=== PATIENT | male | born 1950 | race Caucasian/White ===

== ENCOUNTER 2018-05-11 08:39 | Emergency (ER) | payer MEDICARE ==
[~2018-05-11] VITALS: Ht 172.7 cm; Wt 76.4 kg
[~2018-05-11 08:39] MED LIST: LEVAQUIN 750MG750 M1 PO
[2018-05-11 08:48] VITALS: TEMP 97.6
[2018-05-11 09:09] LABS: BASO % 0.3 % (0.0-2.0); EOS # 0.1 (0.0-0.7); EOS % 0.6 % (0-4.0); GRAN # 8.9 (1.4-6.5); GRAN % 77.4 % (42.2-75.2); HEMATOCRIT 44.4 % (42.0-52.0); HEMOGLOBIN 14.8 g/dl (13.5-18.0); LYMPH # 1.7 (1.2-3.4); LYMPH % 15.2 % (20.0-51.0); MEAN CELL VOLUME 94 fl (80.0-100.0); MEAN CORPUSCULAR HEMOGLOBIN 31 pg (27.0-31.0); MEAN CORPUSCULAR HGB CONC 33 g/dl (33.0-37.0); MEAN PLATELET VOLUME 8.9 fl (7.4-10.4); MONO # 0.7 (0.1-0.6); MONO % 6.2 % (1.7-9.3); PLATELET COUNT 240 K/mm3 (130-400); RED BLOOD COUNT 4.72 M/mm3 (4.20-5.60); REDCELL DISTRIBUTION WIDTH-CV 12.6 % (11.5-14.5)
[2018-05-11 09:22] LABS: ALBUMIN 4.2 gm/dL (3.5-5.0); BILIRUBIN,TOTAL 1.3 mg/dL (0.0-1.0); CALCIUM 9.2 mg/dL (8.4-10.2); CREATININE, serum 0.98 mg/dL (0.66-1.25); POTASSIUM 4.4 mmol/L (3.4-5.0); TOTAL PROTEIN 7.6 gm/dL (6.4-8.2)
[2018-05-11] MEDS ORDERED: PRILOSEC 20MG20 MG PO (09:47)
[2018-05-11] MEDS ORDERED: ZOFRAN ODT8 MG PO (09:47)
[2018-05-11 10:44] LABS: COLLECTION METHOD CLEAN CATCH
[2018-05-11 10:50] LABS: MUCOUS Present /lpf; PH 5 (5-8); SQUAMOUS EPITHELIAL 0-2 /hpf; URINE APPEARANCE Clear; URINE BACTERIA None Seen /hpf; URINE BILIRUBIN Negative (NEGATIVE); URINE BLOOD 1+ (NEGATIVE); URINE COLOR Yellow; URINE GLUCOSE Negative (NEGATIVE); URINE KETONE Negative (NEGATIVE); URINE LEUKOCYTE ESTERASE Negative (NEGATIVE); URINE NITRATE Negative (NEGATIVE); URINE PROTEIN(semi-quant) Negative (NEGATIVE); URINE RBC 0-2 /hpf; URINE UROBILINOGEN Negative (NEGATIVE)
[2018-05-11 12:00] VITALS: BP 130/66; PULSE 72
== END 2018-05-11 12:02 | disposition home or self-care (01) ==
LOC: COL.ER 08:39
PROVIDERS: Emergency Medicine
DX: K92.0 Hematemesis (principal); F17.210 Nicotine dependence, cigarettes, uncomplicated; F12.90 Cannabis use, unspecified, uncomplicated
CPT/HCPCS: C9113; J2270; J2405; J2765; J7030; Q9967

== ENCOUNTER 2018-06-01 13:02 | Day surgery (SDC) | payer MEDICARE, OTHER ==
[~2018-06-01] VITALS: Ht 172.7 cm; Wt 78.4 kg
[2018-06-01] VITALS (9 sets, daily range): BP systolic 99–140; BP diastolic 36–85; PULSE 60–86; TEMP 97.9
[~2018-06-01 13:02] MED LIST changes: +PRILOSEC 20MG20 MG PO; +ZOFRAN ODT8 MG PO
--- NOTE | 2018-06-01 15:10 | NUR ---
Pt returns from endo procedure. Pt ambulates from cart to recliner with RN assist. Monitors on and alarms set. Call light within reach. Pt complains of abdominal pain. Abdomen feels firm--anticipate air in colon from procedure. Report received from PREET [facility]. Pt has no complaints of nausea. present in room.
--- NOTE | 2018-06-01 15:25 | NUR ---
Pt ambulates to bathroom with this RN assist.
--- NOTE | 2018-06-01 15:30 | NUR ---
Pt ambulates back from bathroom having passed some gas. Pt remains feeling pain in abdomen. Dr. Wen in to visit with patient. The doctor feels the abdomen and states it feels like air in the colon from the procedure.
--- NOTE | 2018-06-01 15:45 | NUR ---
Pt taking water and crackers well. Pain in abdomen remains.
--- NOTE | 2018-06-01 15:55 | NUR ---
Pt given warm blanket to place on abdomen as well as another blanket over his body. Pt expresses comfort over these and appears to relax with eyes closed.
--- NOTE | 2018-06-01 16:00 | NUR ---
Pt continues to pass gas, but still has abdominal pain.
--- NOTE | 2018-06-01 16:10 | NUR ---
Communicate with Dr. Wen regarding abdominal pain. He recommends an x-ray to check for free air.
--- NOTE | 2018-06-01 16:30 | NUR ---
Patient continues to pass gas and states continued abdominal pain, but has much relief from previous state.
--- NOTE | 2018-06-01 16:35 | NUR ---
Pt continues to have much relief with much less abdominal pain. Patient desires to be discharged.
--- NOTE | 2018-06-01 16:45 | NUR ---
Radiologist states there is no free air in patient. Dr. Behzad ramirezs discharge of patient.
--- NOTE | 2018-06-01 16:50 | NUR ---
Discharge instructions given to patient and . All questions answered to their satisfaction. Handed to them are a thank you card, discharge instructions, and diagnosis information. Pt ambulates to bathroom with RN assist.
--- NOTE | 2018-06-01 17:00 | NUR ---
Pt transferred out of hospital via wheelchair and Marsha assist to private vehicle driven by .
== END 2018-06-01 17:00 | disposition home or self-care (01) ==
LOC: SDCO 13:02
DX: Z12.11 Encounter for screening for malignant neoplasm of colon (principal); Z80.0 Family history of malignant neoplasm of digestive organs; D12.5 Benign neoplasm of sigmoid colon; K21.0 Gastro-esophageal reflux disease with esophagitis; K92.0 Hematemesis; Z98.52 Vasectomy status; M19.041 Primary osteoarthritis, right hand; F17.220 Nicotine dependence, chewing tobacco, uncomplicated
CPT/HCPCS: J2704; J7030

== ENCOUNTER 2020-12-25 15:29 | Outpatient (CLI) | payer MEDICARE, OTHER ==
[~2020-12-25] VITALS: Ht 172.7 cm; Wt 76.3 kg
[~2020-12-25 15:29] MED LIST changes: +CARAFATE 1GM1 G PO; +ELAVIL100 MG PO; +MOBIC15 MG PO; +NORCO 325 MG-51 TAB PO; +OMNICEF 300MG300 MG PO; +PROTONIX 40MG T40 MG PO; +ROBAXIN 50500 MG/TAB PO; +VALTREX1 GM PO
[2020-12-25 15:32] VITALS: BP 136/77; PULSE 74; TEMP 97.8
[2020-12-25] MEDS ORDERED: ADVIL200 MG PO (15:37)
[2020-12-25 16:00] VITALS: BP 130/78; PULSE 69
[2020-12-25 16:30] VITALS: BP 135/77; PULSE 69
[2020-12-25 16:45] VITALS: BP 137/80; PULSE 52
== END 2020-12-25 17:15 ==
LOC: EUO 15:29
DX: U07.1 COVID-19 (principal)
CPT/HCPCS: Q0244